=== PATIENT | male | born 1945 | race Caucasian/White ===

== ENCOUNTER 2017-01-25 06:21 | Observation (INO) | payer OTHER ==
--- NOTE | 2017-01-25 06:25 | EDPHY ---
H & P HPI/ROS: HPI CHIEF COMPLAINT: Trouble controlling right hand, trouble with speech HISTORY OF PRESENT ILLNESS: This patient very pleasant 71-year-old male otherwise healthy significant past medical history for appendectomy and hip replacement on the right, additionally BPH however no history of cardiac disease or neurological issue. He presents emergency room by private vehicle after he woke up an hour and 15 minutes ago and noticed he was having trouble with his right hand. He cannot get his right hand to do what he wanted to do. Additionally his reports that when he initially woke up his speech sounded slurred. Both of the symptoms have greatly improved. His speech is back to normal. However he still complains that he has a little bit of trouble with function of his hand but greatly improved. He went to bed around 10:00 p.m. last night he woke up around 515 noticed the symptoms. He is unsure exactly when they started. He thought he slept on his right arm. They are improving. Past Medical History: BPH, hyperlipidemia, insomnia takes ambien for sleep Past Surgical History: Appendectomy, hip replacement right Social History: Denies daily use drugs alcohol tobacco products. Lives locally. at bedside. Family History: Noncontributory ROS REVIEW OF SYSTEMS: A comprehensive 10 point review of systems is otherwise negative aside from elements mentioned in the history of present illness. Exam Constitutional appears well nontoxic, triage nursing summary reviewed, vital signs reviewed, awake/alert. Eyes normal conjunctivae and sclera, EOMI, PERRLA. HENT normal inspection, atraumatic, moist mucus membranes, no epistaxis, neck supple/ no meningismus, no raccoon eyes. Respiratory clear to auscultation bilaterally, normal breath sounds, no respiratory distress, no wheezing. Cardiovascular rate normal, regular rhythm, no murmur, no edema, distal pulses normal. Gastrointestinal soft, non-tender, no rebound, no guarding, normal bowel sounds, no distension, no pulsatile mass. Genitourinary no CVA tenderness. Musculoskeletal no midline vertebral tenderness, full range of motion, no calf swelling, no tenderness of extremities, no meningismus, good pulses, neurovascularly intact. Skin pink, warm, & dry, no rash, skin atraumatic. Neurologic I do not appreciate a focal neuro deficit, there is no facial droop , is cranial nerves are intact, good right upper extremity and left upper extremity strength, finger to nose normal, no right-sided weakness patient on exam. Good lower in supervisor strength. awake, alert and oriented x 3, AAOx3, moves all 4 extremities equally, motor intact, sensory intact, CN II-XII intact, normal cerebellar, normal vision, normal speech. On exam I do notice droopy 4th and 5th digits to the right hand. This consistent with ulnar nerve distribution. Psychiatric normal mood/affect. Heme/Lymph/Immune no lymphadenopathy. Differential Diagnosis: Includes but is not limited to in a particular order, CVA, TIA, ulnar nerve palsy Medical Decision Making: Plan for this patient given the dark here described by his as well as trouble controlling his right hand will proceed with stroke workup here in the emergency room. He does not meet tPA criteria because his symptoms are improving and also he woke up with the symptoms and time of onset is unclear. His main complaint is now trouble with his 4th and 5th digits. He states before it was trouble controlling his hand and his reports slurred speech. Re-evaluation: EKG interpretation by me on record in [facility] system. Impression time of EKG 6:32 a.m., this is sinus rhythm rate of 77 nonspecific intraventricular conduction delay otherwise no acute ischemia appreciated. 0713AM: Re-evaluation at this time. Speech is normal. Neuro exam is unremarkable. He will function and range of motion of his hand. The 4th and 5th digit that were weak earlier a greatly improved. Given the constellation of his slurred speech reported by his and difficulty controlling his right hand specifically states felt he had no control when he was trying to button his shirt. The symptoms are concerning. I will admitted to the hospital for CVA versus TIA workup. Additionally tells me is due to fly the wanted tomorrow at 7:00 p.m.. He is hoping to be discharged prior to 7:00 p.m. tomorrow so that he can make his flight. ED x-ray chest one view negative for acute cardiopulmonary disease. ED CT scan head without contrast: Shows no evidence of bleed or stroke. Dr. Lantigua called back. 0725AM: Spoke with Dr. Chung who agrees to admit this patient. Source: Patient Constitutional: Initial Vital Signs Temperature (C) 36.4 C 01/25/17 06:27 Heart Rate 80 01/25/17 06:27 Respiratory Rate 16 01/25/17 06:27 Blood Pressure 137/73 H 01/25/17 06:27 O2 Sat (%) 96 01/25/17 06:27 O2 Delivery Mode Room Air Allergies/Adverse Reactions: egg Allergy (Verified 01/25/17 06:25) gluten Allergy (Verified 01/25/17 06:26) Home Medications: Medication Instructions Recorded Ambien 01/25/17 Antihistamine 01/25/17 Lipitor 01/25/17 Medical Decision Making - Data Points Laboratory Results: Laboratory Results 01/25/17 06:32 01/25/17 06:32 01/25/17 01/25/17 01/25/17 06:32 06:32 06:32 WBC 4.41 10^3/uL 10^3/uL (3.80-9.50) RBC 4.33 10^6/uL L 10^6/uL (4.40-6.38) Hgb 14.7 g/dL g/dL (13.7-17.5) Hct 42.7 % % (40.0-51.0) MCV 98.6 fL fL (81.5-99.8) MCH 33.9 pg pg (27.9-34.1) MCHC 34.4 g/dL g/dL (32.4-36.7) RDW 12.3 % % (11.5-15.2) Plt Count 186 10^3/uL 10^3/uL (150-400) MPV 9.9 fL fL (8.7-11.7) Neut % (Auto) 49.8 % % (39.3-74.2) Lymph % (Auto) 36.3 % % (15.0-45.0) Kane % (Auto) 9.8 % % (4.5-13.0) Eos % (Auto) 3.2 % % (0.6-7.6) Baso % (Auto) 0.9 % % (0.3-1.7) Nucleat RBC Rel Count 0.0 % % (0.0-0.2) Absolute Neuts (auto) 2.20 10^3/uL 10^3/uL (1.70-6.50) Absolute Lymphs (auto) 1.60 10^3/uL 10^3/uL (1.00-3.00) Absolute Monos (auto) 0.43 10^3/uL 10^3/uL (0.30-0.80) Absolute Eos (auto) 0.14 10^3/uL 10^3/uL (0.03-0.40) Absolute Basos (auto) 0.04 10^3/uL 10^3/uL (0.02-0.10) Absolute Nucleated RBC 0.00 10^3/uL 10^3/uL (0-0.01) Immature Gran % 0.0 % % (0.0-1.1) Immature Gran # 0.00 10^3/uL 10^3/uL (0.00-0.10) PT 13.2 SEC SEC (12.0-15.0) INR 1.01 (0.83-1.16) Sodium 142 mEq/L mEq/L (134-144) Potassium 3.9 mEq/L mEq/L (3.5-5.2) Chloride 107 mEq/L mEq/L (97-110) Carbon Dioxide 23 mEq/l mEq/l (22-31) Anion Gap 12 mEq/L mEq/L (8-16) BUN 20 mg/dL mg/dL (7-23) Creatinine 0.9 mg/dL mg/dL (0.7-1.3) Estimated GFR > 60 Glucose 102 mg/dL H mg/dL (70-100) Calcium 9.4 mg/dL mg/dL (8.5-10.4) Troponin I < 0.012 ng/mL ng/mL (0.000-0.034) Medications Given: Discontinued Medications Sodium Chloride (Ns) 1,000 mls @ 0 mls/hr IV ONCE ONE; Wide Open PRN Reason: Protocol Stop: 01/25/17 06:32 Last Admin: 01/25/17 06:55 Dose: 1,000 mls Departure - Departure Disposition: [facility] Acute Clinical Impression: TIA (transient ischemic attack) Qualifiers: Transient cerebral ischemia type: unspecified Qualified Code(s): G45.9 - Transient cerebral ischemic attack, unspecified Condition: Fair Referrals: Phil Orosco MD [Primary Care Provider] - As per Instructions
[2017-01-25] MEDS ORDERED: NS 1,000 ML IV ONE (06:31)
--- NOTE | 2017-01-25 06:34 | CPEKG ---
Heart Rate: 77 RR Interval: 779 P-R Interval: 164 QRSD Interval: 110 QT Interval: 360 QTC Interval: 408 P Valdez: 54 QRS Valdez: -40 T Wave Valdez: 48 EKG Severity - ABNORMAL ECG - EKG Impression: SINUS RHYTHM EKG Impression: NONSPECIFIC IVCD WITH LAD Electronically Signed By: Mónica Zamorano 25-Jan-2017 20:26:28
[2017-01-25 06:38] LABS: ADD DIFF? NO; ADD MORPH? NO; ADD SCAN? NO; ATYPICAL LYMPHOCYTE FLAG 10 (0-99); FRAGMENT RBC FLAG 0 (0-99); HEMATOCRIT 42.7 % (40.0-51.0); HEMOGLOBIN 14.7 g/dL (13.7-17.5); LEFT SHIFT FLG 0 (0-99); LIPEMIA HEMOLYSIS FLAG 90 (0-99); MEAN CELL HEMOGLOBIN 33.9 pg (27.9-34.1); MEAN CELL HEMOGLOBIN CONCENTR. 34.4 g/dL (32.4-36.7); MEAN CELL VOLUME 98.6 fL (81.5-99.8); MEAN PLATELET VOLUME 9.9 fL (8.7-11.7); PLATELET CLUMPS FLAG 0 (0-99); PLATELET COUNT 186 10^3/uL (150-400); RED BLOOD CELL COUNT 4.33 10^6/uL (4.40-6.38); RED CELL DISTRIBUTION WIDTH 12.3 % (11.5-15.2)
[2017-01-25 06:47] LABS: INR 1.01 (0.83-1.16); PROTIME(PATIENT) 13.2 SEC (12.0-15.0)
[2017-01-25 06:49] LABS: ANION GAP 12 mEq/L (8-16); CALCIUM 9.4 mg/dL (8.5-10.4); CARBON DIOXIDE 23 mEq/l (22-31); CHLORIDE 107 mEq/L (97-110); CREATININE 0.9 mg/dL (0.7-1.3); GLOMERULAR FILTRATION RATE > 60; GLUCOSE 102 mg/dL (70-100); POTASSIUM 3.9 mEq/L (3.5-5.2); SODIUM 142 mEq/L (134-144)
[2017-01-25 07:01] LABS: TROPONIN I < 0.012 ng/mL (0.000-0.034)
[2017-01-25] MEDS ORDERED: ACETAMINOPHEN 325 MG TAB PO PRN (07:33)
[2017-01-25] MEDS ORDERED: ONDANSETRON 4 MG/2 ML VIAL IVP PRN (07:33)
[2017-01-25] MEDS ORDERED: ONDANSETRON DISINTEGRATING 4 MG TAB PO PRN (07:33)
[2017-01-25] MEDS ORDERED: NS 1,000 ML IV SCH (07:45)
[2017-01-25 07:53] LABS: CHOLESTEROL 136 mg/dL (140-220); CHOLESTEROL/HDL RATIO 2.34 RATIO (1.00-4.97); ETHANOL SERUM < 10 mg/dL (0-10); HIGH DENSITY LIPOPROTEIN 58 mg/dL (40-65); LDL/HDL RATIO 1.17 RATIO (1.00-3.64); LOW DENSITY LIPOPROTEIN 68 mg/dL (80-100); NON-HIGH DENSITY LIPOPROTEIN 78 mg/dL (90-129); TRIGLYCERIDE 52 mg/dL (40-150); VERY LOW DENSITY LIPOPROTEINS 10 mg/dL (8-25)
--- NOTE | 2017-01-25 08:40 | PDCONSULT ---
Pe Manager Note: Primary care provider: Dr. Orosco Primary orthopedist: Dr. Rehan Barbosa Chief complaint: Acute paresis HPI: 71-year-old male presenting with acute paresis located in his right hand with resultant dyskinesia and associated paresthesia, dysarthria. Onset of symptoms was 5:15 a.m. on the day of presentation, and duration of the dysarthria was approximately 30 minutes. Specifically, the patient was unable to button his shirt with his right hand, was unable to complete other tasks which he normally is able to with his right hand. The duration of the paresthesia and paresis has been at least up until the time of this evaluation, 3 hours later. Patient reports that he was feeling well when he went to bed on the evening prior. Patient reports that he had 2 glasses of wine on the evening prior to presentation, but no other alcohol. He reports that occasionally he does sleep on his arm, and does result in transient paresthesia , but this is usually alleviated by shaking his arm and is never persistent. He otherwise denies any pain located in the back of his neck, denies any pain located in his shoulder. The patient is normally physically active person, he exercises with his and hikes amount since he does 3 times per week occasionally experiencing palpitations but no recent reduction in exercise tolerance. He reports that he has been experiencing intermittent palpitations for years. Review of systems: Paresthesias, paresis, dyskinesia, dysarthria, all other 10 point review of systems otherwise negative. Past medical history: BPH, hyperlipidemia, insomnia, MGUS Past surgical history: Right hip surgery in 2010 Home medications: Flomax, multivitamins, lipitor Social history: Patient is in November 18-2 glasses of wine nightly, he has never experienced acute alcohol withdrawal, he does not smoke or use any other drugs, as mentioned above, he is physically active, he is leaving for [place] tomorrow and will be physically active on that trip Family history: Patient's father had numerous strokes in his early 60s Allergies: No medication allergies Physical exam: Systolic blood pressure 137, heart rate 80, respirations 16, O2 sat 96% on room air, temperature 36.4degrees, generally well-appearing, no pain , calm; ENT demonstrates moist mucous membranes, no glossitis; eyes anicteric with extraocular movements intact; cardiovascular regular rate and rhythm with 106 systolic murmur at the apex and no lower extremity edema; respiratory clear to auscultation bilateral without any crackles or wheezes; gastrointestinal with bowel sounds present, no abdominal masses, no abdominal tenderness; skin no rashes, no vesicular lesions on the face or hand; musculoskeletal no atrophy in the right upper extremity, full range of motion of the right elbow and right wrist without any pain; neuro cranial nerves 2-12 are intact and tested comma motor strength is 5/5 on flexion of the right hand fingers but very subtle reduction in motor strength in full extension of digits 4 and 5 with paresthesia over the dorsum of the right hand along the ulnar aspect; psych alert awake oriented x3, thought process linear, not encephalopathic Data: Chest x-ray demonstrating no focal airspace disease, personally interpreted; head CT no intracranial hemorrhage; EKG demonstrating normal sinus rhythm with Q-wave in lead 3 and intraventricular conduction delay personally interpreted; creatinine 0.9, potassium 3.9, white blood count 4400, hemoglobin 14.7, platelets [id number]; outside records 03/29/2012 brain MRI with read by Dr. Jaun Lantigua demonstrating no abnormal findings, indication was dizziness Assessment: 71-year-old male presents with acute dysarthria, paresthesias, paresis, dyskinesis, concerning for TIA versus CVA Plan: 1. Possible TIA. Acute, new problem this provider, further workup indicated. Patient's symptoms are concerning for possible TIA versus CVA, and if the patient did have an overt TIA his ABCD2 score is 4, placing him at moderate risk for short-term CVA, rendering a 4% 2 day risk, 6% 7 day risk, 10% 90 day risk. Warrants immediate evaluation. -rule out CVA with MRI, MRA for risk stratification -given his history of reported possible mitral valve prolapse, echocardiogram and order outside records from Dr. Orosco office for comparison -get LDL, hemoglobin A1c, cont lipitor and uptitrate if needed -monitor on telemetry -if all the above workup is negative, would recommend outpatient 30 day event monitor given his history of palpitations and possible mitral valve issue predisposing him to atrial fibrillation -initiated on aspirin 81 mg daily, recommend continuing -discussed with Dr. Carlos Ku, he will consult with the patient this afternoon Chanda Mcfarlane will be the daytime hospitalist rounder 2. BPH. Chronic, continue home medication Diet. TRAVEL PT eval, then cardiac diet Prophylaxis. Moderate risk patient, SCDs, hold pharm given possible CVA Code. Full Disposition. Anticipated discharge 01/25/2017 after the above workup has been performed, patient is requesting he be discharged as soon as possible given that he is traveling internationally tomorrow. I have discussed patient's presentation with Dr. Bill Garcia, we both agree the patient warrants immediate workup given his risk factors and presentation.
[2017-01-25] MEDS ORDERED: ASPIRIN 81 MG CHEWABLE TAB ONE (09:03)
[2017-01-25] MEDS: ASPIRIN EC 81 MG TAB PO SCH ×2 (09:17)
[2017-01-25] MEDS ORDERED: GADOBUTROL 10 ML VIAL IVP ONE (09:22)
[2017-01-25 09:34] VITALS: RESP 18
[2017-01-25 09:53] LABS: HEMOGLOBIN A1C 5.4 % (4.0-6.0)
[2017-01-25] MEDS ORDERED: ASPIRIN EC 325 MG TAB PO SCH (10:00)
--- NOTE | 2017-01-25 10:20 | GCON ---
[f rep st] CONSULTATION DATE OF CONSULTATION: 01/25/2017 REFERRING PHYSICIAN: Juan Chin MD CHIEF COMPLAINT: TIA versus stroke. BILLING INFORMATION: 70 minutes total floor time today reviewing electronic health record, imaging test results and direct counseling with the patient and his family, along with coordination of care. HISTORY OF PRESENT ILLNESS: This is a very pleasant 71-year-old gentleman without any significant vascular risk factors. He states he was put on Lipitor around 20 years ago for a false-positive cardiac test but does not have dyslipidemia. No other vascular risk factors. He does not take a daily aspirin. The patient went to bed feeling well at 10:00 p.m. and woke up around 5:15 a.m. this morning with a sensation of right hand or arm weakness and clumsiness, and almost simultaneously his noticed his speech seemed slurred. There was no language dysfunction. Specifically, no problems finding words or thinking of words to express himself. He himself did not notice the slurred speech. There was no comprehension problems when his spoke to him. Therefore by way of history, it appears he had a pure motor dysarthria type symptom. Both the right arm, hand symptoms and motor speech disturbance have essentially resolved now over 5 hours. There may be the slightest weakness in his right finger still. He came to the emergency room immediately as he was resolving from these mild symptoms and a head CT was normal. He was admitted further for TIA stroke evaluation. ECG in the emergency department showed normal sinus rhythm. He has no history of atrial fibrillation. He may have had some palpitations in the past. REVIEW OF SYSTEMS: A 10 point review of systems was done and only pertinent to HPI. For past medical history, social history, family history, home medications, and allergies, please see Dr. Chin's consultation/H and P. PHYSICAL EXAM: VITAL SIGNS: Blood pressure 125/74, temperature 36.6, heart rate 64, respirations 18. GENERAL: No acute distress. Very pleasant gentleman. Higher mental function: He is awake and alert. Lucid. No aphasia. Cranial nerve exam: There is no dysarthria presently. Normal cranial nerve exam 2 through 7, 11, and 12. Motor exam: With digits 4 and 5 on the right hand with flexion, there was 4/5 weakness. Otherwise there was no focal weakness on the remainder of his motor exam. Tone was normal. Reflexes normal. Sensory exam: Normal to light touch throughout. Coordination: Normal in upper and lower extremities. IMPRESSION AND PLAN: 1. Lacunar stroke syndrome. The patient's clinical history best fits with the "clumsy hand-dysarthria syndrome" which is a lacunar stroke pattern, typically caused by a lacunar stroke in the upper eliseo contralateral to the symptoms or sometimes in subcortical white matter such as the internal capsule or the steele radiata. In terms of his actual presentation, he has had spontaneously rapidly resolving symptoms with very small persistent deficits in digits 4 and 5 of his right hand. This may suggest a very small infarct in the distributions described above if present. Going forward, we need to complete the full evaluation. I note that an MRI brain, MRA of the head and neck have already been ordered by Dr. Chin. I appreciate that. He needs to be on aspirin 325 mg daily coated with meals. We certainly could increase his statin dose by 10 mg for vascular protective effects. Lastly, he will need to be continued on ECG telemetry while he is in the hospital to screen for any paroxysmal atrial fibrillation. If there is no atrial fibrillation seen on telemetry, he will need a 30 day event monitor as an outpatient with follow-up with cardiology. The patient let me know he has a flight to a family reunion tomorrow and would like to leave the hospital if at all possible to make that trip. We certainly will do our best to expedite this evaluation. Once we get the results of his 3 MRIs and echo today, I will be certain to touch base with the patient again to summarize the results and the plan going forward so we can best take care of this patient. No further recommendations now. We will follow along. Thank you for this consultation. /[id number]/MODL MTDD
--- NOTE | 2017-01-25 14:22 | HOSPPROG ---
Hospitalist Progress Note Assessment/Plan: 71-year-old male who presented with acute paresis in his right hand as well as dysarthria. Today is my 1st encounter with the patient. Chart reviewed. * TIA versus a stroke/imaging shows a small stroke/ 1-3 possible infarcts Recommending that he get a 30 day event monitor/spoke with cardiology, they will consult LDL is 68, hemoglobin A1c is stable start plavix/ increase statin reviewed tele/shows sinus echo shows left atrium is mildly dilated, mod to severe MR * BPH. Chronic, continue home medication *Plan; both myself and Dr Ku met and coordinated his care/ >35 minutes of talking with him/his was in the conversation via the phone. Recommendation is for him not to travel/ get a 30 day event monitor for close watching for atrial fibrillation. Cardiology to see prior to dc. Subjective: Louis is feeling well/ wants to go to [place]. Objective: Vital Signs Temp Pulse Resp BP Pulse Ox 36.5 C 70 18 116/61 97 01/25/17 12:10 01/25/17 12:10 01/25/17 12:10 01/25/17 12:10 01/25/17 12:10 PT 13.2 SEC (12.0-15.0) 01/25/17 06:32 INR 1.01 (0.83-1.16) 01/25/17 06:32 - Physical Exam Constitutional: no apparent distress, appears nourished Eyes: PERRL Ears, Nose, Mouth, Throat: hearing normal Cardiovascular: regular rate and rhythym Skin: warm, normal color Musculoskeletal: full muscle strength Neurologic: AAOx3, No facial droop Psychiatric: interacting appropriately, not anxious ICD10 Worksheet Patient Problems: Problems Problem Status Onset TIA (transient ischemic attack) Acute
--- NOTE | 2017-01-25 16:07 | NEUROPROG ---
Assessment: 1. Stroke 2. 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 Dilated left atrium 4. Moderate to severe mitral regurgitation 5. History of palpations The patient's brain MRI showed a small acute infarct in the left parietal region. In addition, there was a question regarding some diffusion-weighted changes in the bi-occipital regions. I viewed the images myself at length. It is not entirely clear whether these imaging findings represent artifact versus true diffusion-weighted abnormalities. MRA of the neck showed no significant carotid obstruction. MRA of the head showed a small 1-2 mm aneurysm in the A2 segment on the right (likely incidental finding). In any case, the stroke that is visualized in the left parietal region certainly would be in the localization region responsible for his presenting symptomatology. The patient has had palpitations in the past and echocardiogram today showed mild dilation of the left atrium. Ejection fraction was 60-65%. There is also moderate to severe mitral regurgitation. Recommendations: 1. I have recommended the patient NOT to travel - and have a 30 day event monitor as soon as possible to screen for paroxysmal atrial fibrillation. If a 30 day event monitor is negative for PAF, I would recommend an implantable final operations technician (LINQ) to screen further for paroxysmal atrial fibrillation 2. In the interim, he should be on Plavix 75 mg daily. He let us know that aspirin has caused reflux symptoms in the past. We discussed potential risks, benefits and alternatives of Plavix. 3. We will increase his Lipitor dose to 20 mg daily. 4. Follow-up with Neurosurgery as an outpatient for further evaluation and treatment of intracranial aneurysm. 5. He should follow up with Cardiology as an outpatient to review the ECG monitoring results and regarding evaluation and treatment recommendations for his mitral valve regurgitation. 6. Cardiology has been consulted to see him as an inpatient prior to discharge to review the above. 7. He can follow up with Neurology as an outpatient as needed. He will likely discharge today. No further recommendations now. Please do not hesitate to call for any further questions or changes in neurologic status with this pleasant patient. Objective: Vital Signs Temp Pulse Resp BP Pulse Ox 36.5 C 70 18 116/61 97 01/25/17 12:10 01/25/17 12:10 01/25/17 12:10 01/25/17 12:10 01/25/17 12:10 PT 13.2 SEC (12.0-15.0) 01/25/17 06:32 INR 1.01 (0.83-1.16) 01/25/17 06:32 Allergies/Adverse Reactions: egg Allergy (Verified 01/25/17 06:25)
[2017-01-25 16:46] VITALS: BP 121/61; PULSE 80; TEMP 97.5; O2SAT 96
--- NOTE | 2017-01-25 16:59 | ECHO ---
[id number] + + [address] : : [place] [address] : : [phone] + + Adult Echocardiographic Report + ----+ :Name: JARETT ANDERSON Date: 01/25/2017 10:35 AM : : Hospital Admission Number: [id number] Location: 362: :: 1945 Gender: Male Height: 69 in : :Age: 71 yrs Race: WH Weight: 160 lb : :Reason For Study: TIA : : BSA: 1.9 meters2 : + ----+ MMode/2D Measurements & Calculations IVSd: 0.64 cm LVIDd: 5.8 cm FS: 48.7 % MV Diam: 3.8 cm LVPWd: 0.77 cm LVIDs: 3.0 cm EDV(Teich): 164.9 ml ESV(Teich): 34.0 ml EF(Teich): 79.4 % LA dimension: LVOT diam: 2.2 cmLVLd ap4: 8.6 cm SV(MOD-sp4): 3.9 cm LVOT area: EDV(MOD-sp4): 63.0 ml 3.9 cm2 100.0 ml LVLs ap4: 7.2 cm ESV(MOD-sp4): 37.0 ml EF(MOD-sp4): 63.0 % Normal Measurement Values: + + :LVIDd (3.5-5.7cm) IVSd (0.6-1.1cm) LVPWd (0.6-1.1cm) Aortic Root (2.0-3.7cm)Left Atrium (1.5-4.0cm): :LV Vol(d) (76-115ml) LV Vol(s) (29-48ml) Ejec Fraction (50-65%)PV Too (0.6- 1.2m/s) TV Too (0.4-1.0m/s) : :MV E Too (0.8-1.0m/s)MV A Too (0.3-1.0m/s)LVOT Too (0.7-1.2m/s) Asc Ao Too ( 0.9-1.8m/s) : + + Doppler Measurements & Calculations MV E max too: MV V2 mean: Ao mean PG: LV V1 max: 75.5 cm/sec 48.3 cm/sec 2.6 mmHg 73.1 cm/sec MV A max too: MV mean P.1 mmHgAo V2 mean: LV V1 max P.6 cm/sec MV V2 VTI: 27.4 cm 74.2 cm/sec 2.1 mmHg MV E/A: 1.1 MV area (1 diam): Ao V2 VTI: 24.8 cm LV V1 mean P.1 cm2 ROLANDO(I,D): 3.0 cm2 1.4 mmHg LV V1 mean: MVA(VTI): 2.7 cm2 55.5 cm/sec MV Flow area(1diam): LV V1 VTI: 19.2 cm 11.1 cm2 MR max too: MR(RF 1 diam): SV(MV 1 diam): RF(MV,LVOT) 518.2 cm/sec 12.7 % 304.2 ml (1diam): 0.75 MR max PG: SI(MV 1 diam): 107.4 mmHg 161.9 ml/m2 SV(LVOT): 75.1 ml Left Ventricle The left ventricle is normal in size. There is normal left ventricular wall thickness. Left ventricular systolic function is normal. Ejection Fraction = 60-65%. No regional wall motion abnormalities noted. Right Ventricle The right ventricle is normal in size and function. Atria The left atrium is mildly dilated. Right atrial size is normal. Injection of contrast documented no interatrial shunt. Mitral Valve Prolapse of the posterior mitral leaflet(s). There is moderate mitral valve prolapse. There is no mitral valve stenosis. There is moderate to severe mitral regurgitation. Tricuspid Valve Normal tricuspid valve. There is mild tricuspid regurgitation. Right ventricular systolic pressure is normal. Aortic Valve The aortic valve is trileaflet. The aortic valve opens well. There is no aortic stenosis. There is no aortic insufficiency. Pulmonic Valve The pulmonic valve is normal in structure and function. Trace pulmonic valvular regurgitation. Great Vessels The aortic root is normal size. Pericardium/Pleural There is no pericardial effusion. Conclusion A complete two-dimensional transthoracic echocardiogram was performed (2D, M-mode, Doppler and color flow Doppler). Compared to the previous [place] [facility] the amount of MR has worsened. Left ventricular systolic function is normal. Ejection Fraction = 60-65%. The left atrium is mildly dilated. Prolapse of the posterior mitral leaflet(s).There is moderate mitral valve prolapse. There is moderate to severe mitral regurgitation. There is mild tricuspid regurgitation. Right ventricular systolic pressure is normal. Trace pulmonic valvular regurgitation. Injection of contrast documented no interatrial shunt. Final Reading Physician: Gisselle Olivarez signed on 01/25/2017 04:57 PM Ordering Physician: Juan Chin Performed By: Emily Curtis RDCS
[2017-01-25] MEDS ORDERED: ATORVASTATIN CALCIUM 10 MG TAB PO SCH (17:00)
--- NOTE | 2017-01-25 18:31 | GDS ---
[f rep st] DISCHARGE SUMMARY DISCHARGE DIAGNOSES: 1. Stroke. 2. 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 3. Vnpgvsao-wc-byevnz mitral regurgitation. 4. Benign prostatic hyperplasia. CONSULTATIONS: 1. Dr. Carlos Ku. 2. Dr. Wei Bennett. BRIEF HISTORY: The patient is a 71-year-old gentleman without any significant history who woke up around 5:15 this morning with a sensation of right hand and arm weakness with associated clumsiness. His noticed his speech seemed slurred. There was no language dysfunction. He came to the emergency room as he was resolving from these. He had a head CT that was normal. He was admitted for further evaluation of TIA versus a stroke. A brain MRI was performed. This showed small supratentorial cortical infarcts. Reviewed the findings of the MRI with Dr. Ku. It looks like he had a small acute infarct in the left parietal region. In regard to the bioccipital regions, Dr. Ku reviewed them and he is not clear if these are artifact or true diffusion- weighted abnormalities. In addition, MRI of the neck showed no significant carotid obstruction. MRI of the head showed a small 1-2 mm aneurysm in the A-2 segment on the right. This was an incidental finding. He also had an echocardiogram which showed dilation of the left atrium. His EF was 60% to 65% . There was also gzyntrws-ae-wtoimh mitral regurgitation. The plan is for him to be discharged home. He was seen and evaluated by Dr. Bennett who will follow up with him in the outpatient setting. He will be started on Plavix. I have doubled his dose of Lipitor. HOSPITAL COURSE: 1. Stroke. This is noted in the left parietal region. Will treat with Plavix and statin therapy. 2. 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 This was an incidental finding. I have given him the name of a neurosurgeon for followup. 3. Gollspow-vm-zwmkog mitral regurgitation. Further followup with Cardiology. 4. BPH. Home medications have been resumed. CONDITION AT DISCHARGE: GENERAL: Stable. VITAL SIGNS: Blood pressure is 121/61, respiratory rate is 18, O2 sats on room air 96%, temperature is 36.4 Celsius. MEDICATIONS AT DISCHARGE: Please see the EMR. DISCHARGE INSTRUCTIONS: 1. To follow up with Dr. Bennett for a 30-day event monitor. 2. Dr. Ku and I have both recommended not to travel. He should get a 30-day event monitor or a link to screen for any possible paroxysmal atrial fibrillation. 3. To follow up with Neurosurgery in the outpatient setting. /[id number]/MODL MTDD
--- NOTE | 2017-01-25 19:02 | PDCARCONS ---
Cardiology Consult Reason for Consult: Query atrial fibrillation Chief Complaint: Finger numbness Requesting Physician: Chanda Mcfarlane History of Present Illness: 71-year-old male no prior cardiovascular history admitted with acute onset of dysarthria associated with numbness of his pinky and ring finger lasting 10 minutes. I am asked to consult this evening as the patient plans to travel to [place] tomorrow and there is some concern that he may have paroxysmal atrial fibrillation. Patient denies any history of palpitations. His symptoms began last evening when he awoke in the middle of the night. At that point he did not have palpitations. He has never had syncope or near syncope. He has never had episodes of dizziness. Patient was diagnosed with mild to moderate mitral regurgitation this past September. Dr. Orosco his primary care doctor heard a murmur and sent him for an echocardiogram. This was reported on September 25. His ejection fraction was preserved at 55-60%. He had diastolic dysfunction. He had myxomatous mitral valves with mild to moderate mitral regurgitation and a pulmonary artery pressure that was normal. He has been under longstanding care for hyperlipidemia on statin therapy. He has significant osteoarthritis on Celebrex. Prior to this event he had no medical problems. He was hiking [place] without limitations. Patient denies chest pain, PND, orthopnea. He has no exertional shortness of breath. He has had no prior neurologic complaints. History Information - Allergies/Home Medication List Allergies/Adverse Reactions: egg Allergy (Verified 01/25/17 06:25) Home Medications: Atorvastatin Calcium [Lipitor 10 mg (*)] 10 mg PO DAILY@1700 01/25/17 [Last Taken 01/24/17] Tamsulosin HCl [Flomax 0.4 MG (*)] 0.4 mg PO BID 01/25/17 [Last Taken 01/24/17 21:00] Zolpidem Tartrate [Ambien 10 mg] 10 mg PO HS 01/25/17 [Last Taken 01/24/17] celeCOXIB [Celebrex (*)] 200 mg PO DAILY PRN 01/25/17 [Last Taken 01/23/17] I have personally reviewed and updated: family history, medical history, social history, surgical history Past Medical History: - Past Medical History arthritis, hyperlipidemia - Surgical History Reports: no pertinent surgical hx - Family History Positive for: stroke - Social History Smoking Status: Former smoker Age in Years: [age] Sex: Male Congestive Heart Failure History: No Hypertension History: No Stroke/TIA/Thromboembolism History: No Vascular Disease History: No Diabetes Mellitus: No [id number] Score: 5 Physical Exam Physical Exam: Temp Pulse Resp BP Pulse Ox 36.4 C 80 18 121/61 H 96 01/25/17 16:45 01/25/17 16:45 01/25/17 16:45 01/25/17 16:45 01/25/17 16:45 Constitutional: no apparent distress, appears nourished Eyes: PERRL, anicteric sclera, EOMI Ears, Nose, Mouth, Throat: moist mucous membranes Cardiovascular: regular rate and rhythym, systolic murmur, No JVD Peripheral Pulses: 1+: carotid (R), carotid (L), femoral (R), femoral (L), dorsalis-pedis (R), dorsalis-pedis (L) Respiratory: no respiratory distress, no rales or rhonchi, clear to auscultation Gastrointestinal: normoactive bowel sounds, soft, non-tender abdomen, no palpable masses Genitourinary: no bladder fullness Skin: warm, normal color, no rashes or abrasions Musculoskeletal: full muscle strength, no muscle tenderness Neurologic: AAOx3, sensation intact bilaterally, No weakness, No facial droop Psychiatric: interacting appropriately, anxious Lymph, Heme, Immunologic: no cervical LAD, no supraclavicular LAD Lab and Imaging 01/25/17 06:32 01/25/17 06:32 WBC 4.41 10^3/uL (3.80-9.50) 01/25/17 06:32 RBC 4.33 10^6/uL (4.40-6.38) L 01/25/17 06:32 Hgb 14.7 g/dL (13.7-17.5) 01/25/17 06:32 POC Hgb 15.0 gm/dL (13.7-17.5) 01/25/17 06:24 Hct 42.7 % (40.0-51.0) 01/25/17 06:32 POC Hct 44 % (40-51) 01/25/17 06:24 MCV 98.6 fL (81.5-99.8) 01/25/17 06:32 MCH 33.9 pg (27.9-34.1) 01/25/17 06:32 MCHC 34.4 g/dL (32.4-36.7) 01/25/17 06:32 RDW 12.3 % (11.5-15.2) 01/25/17 06:32 Plt Count 186 10^3/uL (150-400) 01/25/17 06:32 MPV 9.9 fL (8.7-11.7) 01/25/17 06:32 Neut % (Auto) 49.8 % (39.3-74.2) 01/25/17 06:32 Lymph % (Auto) 36.3 % (15.0-45.0) 01/25/17 06:32 Dane % (Auto) 9.8 % (4.5-13.0) 01/25/17 06:32 Eos % (Auto) 3.2 % (0.6-7.6) 01/25/17 06:32 Baso % (Auto) 0.9 % (0.3-1.7) 01/25/17 06:32 Nucleat RBC Rel Count 0.0 % (0.0-0.2) 01/25/17 06:32 Absolute Neuts (auto) 2.20 10^3/uL (1.70-6.50) 01/25/17 06:32 Absolute Lymphs (auto) 1.60 10^3/uL (1.00-3.00) 01/25/17 06:32 Absolute Monos (auto) 0.43 10^3/uL (0.30-0.80) 01/25/17 06:32 Absolute Eos (auto) 0.14 10^3/uL (0.03-0.40) 01/25/17 06:32 Absolute Basos (auto) 0.04 10^3/uL (0.02-0.10) 01/25/17 06:32 Absolute Nucleated RBC 0.00 10^3/uL (0-0.01) 01/25/17 06:32 Immature Gran % 0.0 % (0.0-1.1) 01/25/17 06:32 Immature Gran # 0.00 10^3/uL (0.00-0.10) 01/25/17 06:32 PT 13.2 SEC (12.0-15.0) 01/25/17 06:32 INR 1.01 (0.83-1.16) 01/25/17 06:32 POC Sodium 143 mEq/L (134-144) 01/25/17 06:24 Sodium 142 mEq/L (134-144) 01/25/17 06:32 POC Potassium 3.8 mEq/L (3.3-5.0) 01/25/17 06:24 Potassium 3.9 mEq/L (3.5-5.2) 01/25/17 06:32 POC Chloride 107 mEq/L (97-110) 01/25/17 06:24 Chloride 107 mEq/L (97-110) 01/25/17 06:32 Carbon Dioxide 23 mEq/l (22-31) 01/25/17 06:32 Anion Gap 12 mEq/L (8-16) 01/25/17 06:32 POC BUN 19 mg/dL (7-23) 01/25/17 06:24 BUN 20 mg/dL (7-23) 01/25/17 06:32 Creatinine 0.9 mg/dL (0.7-1.3) 01/25/17 06:32 POC Creatinine 0.9 mg/dL (0.7-1.3) 01/25/17 06:24 Estimated GFR > 60 01/25/17 06:32 Glucose 102 mg/dL (70-100) H 01/25/17 06:32 POC Glucose 104 mg/dL (70-100) H 01/25/17 06:24 Hemoglobin A1c 5.4 % (4.0-6.0) 01/25/17 06:32 Estim Average Glucose 108 mg/dL (68-126) 01/25/17 06:32 Calcium 9.4 mg/dL (8.5-10.4) 01/25/17 06:32 Troponin I < 0.012 ng/mL (0.000-0.034) 01/25/17 06:32 Triglycerides 52 mg/dL (40-150) 01/25/17 06:32 Cholesterol 136 mg/dL (140-220) L 01/25/17 06:32 Cholesterol Risk Factr 0.4 (0.2-1.0) 01/25/17 06:32 LDL Cholesterol, Calc 68 mg/dL (80-100) L 01/25/17 06:32 LDL Risk Factor 0.6 (0.2-1.0) 01/25/17 06:32 VLDL Cholesterol 10 mg/dL (8-25) 01/25/17 06:32 Non-HDL Cholesterol 78 mg/dL (90-129) L 01/25/17 06:32 HDL Cholesterol 58 mg/dL (40-65) 01/25/17 06:32 LDL/HDL Ratio 1.17 RATIO (1.00-3.64) 01/25/17 06:32 Cholesterol/HDL Ratio 2.34 RATIO (1.00-4.97) 01/25/17 06:32 Ethyl Alcohol < 10 mg/dL (0-10) 01/25/17 06:32 Chest X-ray Interpretation: other (Normal cardiac silhouette with no infiltrates) EKG additional interpertation: EKG shows sinus rhythm with a left anterior fascicular block. Normal intervals. Telemetry: Sinus rhythm with occasional PVCs. Echocardiogram: No pericardial effusion. Normal left ventricular systolic function. Mild left atrial enlargement. Moderate to severe mitral regurgitation with prolapse. Normal pulmonary artery pressure A/P Assessment: Problem list 1. TIA. 2. Moderate to severe mitral regurgitation with borderline left atrial size and normal pulmonary artery pressures in the setting of normal ejection fraction. 3. Hyperlipidemia MRI of the head suggested some possibility that this could represent embolic phenomena. No source of embolism was identified by today's transthoracic echocardiogram. In light of mitral regurgitation and borderline left atrial size the risk of atrial fibrillation is recognized. There are no surgical indications identified by today's echocardiogram, clinical history for his mitral valve. Agree with antiplatelet therapy. Agree with statin therapy for goal LDL cholesterol less than 70 mg/dL. Serial follow-up by echocardiography for mitral valve disease with study at least every year in clinical follow-up every 6 months. Serial evaluation for potential atrial fibrillation. This was discussed with the patient and his . There are no cardiac contraindications to travel. Plan: Outpatient monitoring for occult atrial fibrillation. Antiplatelet therapy. Statin therapy. Clinical follow-up. Review of Systems Review of Systems: - Review of Systems Constitutional: denies: chills, fever, malaise, weakness, weight loss EENTM: no symptoms reported Respiratory: no symptoms reported Cardiac: no symptoms reported Gastrointestinal/Abdominal: no symptoms reported Genitourinary: no symptoms Musculoskelatal: no symptoms Skin: no symptoms Neurological: numbness, other ( reported dysarthria) Hematologic/Lymphatic: no symptoms reported Immunologic/allergic: no symptoms reported
[2017-01-25] MEDS ORDERED: ZOLPIDEM TARTRATE 5 MG TAB PO SCH (21:00)
[2017-01-25] MEDS ORDERED: TAMSULOSIN HCL 0.4 MG CAP PO SCH (21:00)
[2017-01-25] MEDS ORDERED: NON-FORMULARY NEW DRUG (Zolpidem Tartrate [Ambien 10 Mg] 10 MG) PO SCH (21:00)
[2017-01-26] MEDS ORDERED: CLOPIDOGREL BISULFATE 75 MG TAB PO SCH (09:00)
== END 2017-01-25 18:09 | disposition home or self-care (01) ==
LOC: F3N 09:21
PROVIDERS: ADMIT Internal Medicine; ATTEND Internal Medicine Pulmonary Disease
DX: I63.9 Cerebral infarction, unspecified (principal); I67.1 Cerebral aneurysm, nonruptured; I34.0 Nonrheumatic mitral (valve) insufficiency; N40.0 Benign prostatic hyperplasia without lower urinary tract symptoms; E78.5 Hyperlipidemia, unspecified; G47.00 Insomnia, unspecified; Z96.641 Presence of right artificial hip joint
CPT/HCPCS: 70450; 70544; 70549; 70551; 71010; 93005; 93306; 97161; A9585; G8978; G8979; G8980; 82947-QW; G0480

== ENCOUNTER 2017-02-26 07:32 | Day surgery (SDC) | payer OTHER ==
[2017-02-26] MEDS ORDERED: diphenhydrAMINE 25 MG CAP PO ONE ×2 (07:45→08:13)
[2017-02-26] MEDS ORDERED: FAMOTIDINE 20 MG TAB PO ONE (07:45)
[2017-02-26] MEDS ORDERED: DIAZEPAM 5 MG TAB PO ONE (07:45)
[2017-02-26] MEDS ORDERED: NS 1,000 ML IV ONE (07:45)
[2017-02-26] MEDS ORDERED: ASPIRIN EC 325 MG TAB PO ONE ×2 (07:45→08:13)
--- NOTE | 2017-02-26 08:08 | CPEKG ---
Heart Rate: 76 RR Interval: 789 P-R Interval: 180 QRSD Interval: 108 QT Interval: 376 QTC Interval: 423 P [place]: 60 QRS [place]: -51 T Wave [place]: 37 EKG Severity - ABNORMAL ECG - EKG Impression: SINUS RHYTHM EKG Impression: LAD, CONSIDER LEFT ANTERIOR FASCICULAR BLOCK Preliminary Awaiting MD Review
[2017-02-26] MEDS ORDERED: DIAZEPAM 5 MG TAB ONE (08:13)
[2017-02-26] MEDS ORDERED: FAMOTIDINE 20 MG TAB ONE (08:13)
[2017-02-26 08:30] LABS: ADD DIFF? NO; ADD MORPH? NO; ADD SCAN? NO; ATYPICAL LYMPHOCYTE FLAG 20 (0-99); FRAGMENT RBC FLAG 0 (0-99); HEMATOCRIT 40.1 % (40.0-51.0); HEMOGLOBIN 14.1 g/dL (13.7-17.5); LEFT SHIFT FLG 0 (0-99); LIPEMIA HEMOLYSIS FLAG 90 (0-99); MEAN CELL HEMOGLOBIN 34.7 pg (27.9-34.1); MEAN CELL HEMOGLOBIN CONCENTR. 35.2 g/dL (32.4-36.7); MEAN CELL VOLUME 98.8 fL (81.5-99.8); MEAN PLATELET VOLUME 9.7 fL (8.7-11.7); PLATELET CLUMPS FLAG 0 (0-99); PLATELET COUNT 181 10^3/uL (150-400); RED BLOOD CELL COUNT 4.06 10^6/uL (4.40-6.38); RED CELL DISTRIBUTION WIDTH 12.5 % (11.5-15.2)
[2017-02-26 08:42] LABS: ANION GAP 8 mEq/L (8-16); CALCIUM 9.6 mg/dL (8.5-10.4); CARBON DIOXIDE 23 mEq/l (22-31); CHLORIDE 106 mEq/L (97-110); CHOLESTEROL 134 mg/dL (140-220); CHOLESTEROL/HDL RATIO 2.48 RATIO (1.00-4.97); CREATININE 0.9 mg/dL (0.7-1.3); GLOMERULAR FILTRATION RATE > 60; GLUCOSE 93 mg/dL (70-100); HIGH DENSITY LIPOPROTEIN 54 mg/dL (40-65); LDL/HDL RATIO 1.31 RATIO (1.00-3.64); LOW DENSITY LIPOPROTEIN 71 mg/dL (80-100); MAGNESIUM 2.2 mg/dL (1.6-2.3); NON-HIGH DENSITY LIPOPROTEIN 80 mg/dL (90-129); POTASSIUM 4.2 mEq/L (3.5-5.2); SODIUM 137 mEq/L (134-144); TRIGLYCERIDE 49 mg/dL (40-150); VERY LOW DENSITY LIPOPROTEINS 9 mg/dL (8-25)
[2017-02-26 08:47] LABS: INR 1.03 (0.83-1.16); PROTIME(PATIENT) 13.4 SEC (12.0-15.0)
[2017-02-26] MEDS ORDERED: BENZOCAINE UNIT DOSE SPRAY HURRICAINE MM ONE (08:50)
[2017-02-26] MEDS ORDERED: MIDAZOLAM 2 MG/2 ML VIAL IVP ONE (08:50)
[2017-02-26] MEDS ORDERED: fentaNYL 100 MCG/2 ML INJ IVP ONE (08:50)
[2017-02-26] MEDS ORDERED: fentaNYL 100 MCG/2 ML INJ ONE ×2 (08:57→10:35)
[2017-02-26] MEDS ORDERED: MIDAZOLAM 2 MG/2 ML VIAL ONE ×2 (08:57→10:35)
--- NOTE | 2017-02-26 09:43 | PDPROPOC ---
Sedation Plan of Care Sedation Plan of Care: vital signs stable, mental status noted, patient educated of risks, benefits, alternatives, patient can tolerate sedation ASA Classification: ASA 2 Planned drugs: fentanyl, midazolam Mallampati Score: Class 1 Mallampati Reference Image: Patient passed 3-3-2 rule?: Yes
--- NOTE | 2017-02-26 09:44 | PDHPUP ---
History & Physical Update H&P update statement: This history and physical update is based on an assessment of the patient which was completed after admission or registration (within 24 hours), but prior to the surgery/procedure. H&P update: H&P reviewed & patient examined, no change in patient's condition since H&P completed
[2017-02-26] MEDS ORDERED: LIDOCAINE 1% 300 MG/30 ML SDV ONE (10:35)
[2017-02-26] MEDS ORDERED: IOPAMIDOL (ISOVUE-370) 150 ML BTL IV ONE (10:36)
[2017-02-26] MEDS ORDERED: HEPARIN 10,000 UNIT/10 ML MDV ONE (10:36)
[2017-02-26] MEDS ORDERED: VERAPAMIL 5 MG/2 ML VIAL ONE ×2 (10:36→10:51)
[2017-02-26] MEDS ORDERED: ATROPINE SULFATE 1 MG/10 ML SYR IVP PRN (11:22)
[2017-02-26] MEDS ORDERED: ONDANSETRON 4 MG/2 ML VIAL IVP PRN (11:22)
--- NOTE | 2017-02-26 11:27 | PDDXCAT ---
Diagnostic Cath Note - . Date: 02/26/17 Apartment Maintenance Manager: Donald Indication: other (Preoperative evaluation before mitral valve repair.) - Procedure Access: right wrist Procedure: left heart catheterization, coronary angiography, left ventriculogram , right heart catheterization - Materials Left Heart Cath size: 5F Left Heart Cath materials: pigtail, other ([email or web address]) Right Heart Cath size: 5F Right Heart Cath materials: PWP catheter - Findings-Left Heart Catheterization LM: Normal LAD: Normal LCX: Normal RCA: Dominant: Normal EDP: 12 mm of mercury LVEF: 60%, 2+ MR by contrast. Posterior leaflet prolapse. Wall motion: Normal - Findings-Right Heart Catheterization RA: 6 mm of mercury RV: 23/8 mm of mercury PA: 23/12 mm of mercury PAOP: 12 mm of mercury Complications: None Estimated blood loss: <50ml Closure method: TR Band Assessment: Procedure: For details please see the attached computer report. Contrast: 80 cc. Sedation: 1 mg Versed, 25 mcg fentanyl. Radiation: 5.3 minutes of fluoroscopy, 102 mGy. Conclusions: Angiographically normal coronary arteries. Normal right heart hemodynamics. Normal left ventricular systolic function with 2+ mitral regurgitation prolapse of the posterior leaflet. Plan: At this point, from a purely valvular point of view. He does not meet criteria for surgical evaluation. However, with inability to anticoagulate the patient, considerable risk for atrial fibrillation, recent TIA/CVA, considerations for mitral valve repair, closure of the left atrial appendage, prophylactic pulmonary vein ablation. Based on age, I think we would like to document atrial fibrillation prior to intervening for this reason. Patient Problems: Problems Problem Status Onset Mitral leaflet abnormality Acute Mitral insufficiency Acute TIA (transient ischemic attack) Acute
--- NOTE | 2017-02-26 12:04 | ECHO ---
[email or web address] [id number] Main: [phone] Fax: Transesophageal Echocardiography Name: JARETT ANDERSON MR#: [id number] Study Date: 02/26/2017 Study Time: 08:57 AM Date of : 1945 Age: 71 year(s) Height: ( ) Weight: ( ) BSA: Gender: Male Examination: BIB Indication: Eval MVP Image Quality: Contrast: Requested by: Wei Bennett Heart Rate: Rhythm: BP: 114 mmHg/66 mmHg Procedure Staff Locomotive Firer/Fireman: Reading Physician: Wei Bennett Requesting Provider: BIB Exam Details Conclusions: Posterior leaflet prolapse with moderate mitral regurgitation. Normal LV systolic function. Measurements: Chambers Valvular Assessment AV/MV Valvular Assessment TV/PV Normal Normal Normal Name Value Range Name Value Range Name Value Range Additional Measurements: Findings: Left Ventricle: Normal global systolic LV function. Left Atrium: An agitated saline study was performed and was positive for intracardiac shunting. Left Atrial Appendage: No thrombus in left appendage. Mitral Valve: There is severe prolapse of the posterior leaflet of the mitral valve. Moderate to severe mitral regurgitation. Aortic Valve: The aortic valve is tri-leaflet. There is no aortic valve regurgitation. Pulmonic Valve: Patient: JARETT ANDERSON Study Date: 02/26/2017 Page 1 of 2 08:57 AM Trivial pulmonic valve regurgitation. l1n (No Signature Object) Patient: JARETT ANDERSON Study Date: 02/26/2017 Page 2 of 2 08:57 AM [id number]
== END 2017-02-26 15:45 | disposition home or self-care (01) ==
LOC: FCATH 07:32
PROVIDERS: ATTEND Internal Medicine Interventional Cardiology
PROC: 4A023N8 Measurement of Cardiac Sampling and Pressure, Bilateral, Percutaneous Approach (ICD-10-PCS; principal; 2017-02-26)
PROC: B245ZZ4 Ultrasonography of Left Heart, Transesophageal (ICD-10-PCS; principal; 2017-02-26)
DX: I34.1 Nonrheumatic mitral (valve) prolapse (principal); I34.0 Nonrheumatic mitral (valve) insufficiency; I48.0 Paroxysmal atrial fibrillation; E78.5 Hyperlipidemia, unspecified; Z87.891 Personal history of nicotine dependence
CPT/HCPCS: 93005; 93312; 93460; C1769; J1644; J2250; J3010; Q9967

== ENCOUNTER → 2017-02-28 | Outpatient (CLI) | payer OTHER | LOC: BHFA 12:00 | PROVIDERS: ATTEND Internal Medicine Cardiovascular Disease | DX: I34.0 Nonrheumatic mitral (valve) insufficiency (principal) ==

== ENCOUNTER 2017-04-23 07:03 | Day surgery (SDC) | payer OTHER ==
[2017-04-23] MEDS ORDERED: LIDOCAINE 1% 300 MG/30 ML SDV ONE (08:04)
--- NOTE | 2017-04-30 14:46 | CPIP ---
[f rep st] INVASIVE CARDIAC PROCEDURE DATE OF PROCEDURE: 04/25/2017 PROCEDURE: Implantation of a LINQ recorder. INDICATIONS: Cryptogenic stroke, query atrial fibrillation. DESCRIPTION OF PROCEDURE: After obtaining informed consent, the left peripectoral region was sterile ly prepped and draped. It was infiltrated with 2% Xylocaine. Using a stab wound, a LINQ recorder wa s placed under the skin. Three griffin were used to close the incision. CONCLUSION: Successful implantation of a LINQ recorder. COMPLICATIONS: None. /[id number]/MODL
== END 2017-04-23 09:55 | disposition home or self-care (01) ==
LOC: FCATH 07:03
PROVIDERS: ATTEND Internal Medicine Interventional Cardiology
PROC: 0JH60PZ Insertion of Cardiac Rhythm Related Device into Chest Subcutaneous Tissue and Fascia, Open Approach (ICD-10-PCS; principal; 2017-04-23)
DX: I63.9 Cerebral infarction, unspecified (principal); I34.0 Nonrheumatic mitral (valve) insufficiency; R31.9 Hematuria, unspecified; N32.3 Diverticulum of bladder; I34.1 Nonrheumatic mitral (valve) prolapse
CPT/HCPCS: C1764

== ENCOUNTER → 2018-01-09 | Outpatient (CLI) | payer OTHER | DX: I34.0 Nonrheumatic mitral (valve) insufficiency (principal) ==